=== PATIENT | male | born 1990 ===

== ENCOUNTER 2018-01-11 12:29 | Observation (INO) | payer MEDICAID ==
[2018-01-11] MEDS ORDERED: Sodium Chloride 0.9% 1,000 ML IV STA ×2 (13:14→15:45)
[2018-01-11 13:45] LABS: BASO # 0.1 K/uL (0.0-0.2); BASO % 0.7 % (0.0-2.0); EOS % 0.1 % (0.0-4.0); HEMOGLOBIN 15.5 g/dL (12.0-18.0); LYMPH # 1.4 K/uL (1.0-4.3); LYMPH % 15.5 % (20.0-40.0); MEAN CELL VOLUME 82.4 fl (80.0-94.0); MEAN CORPUSCULAR HEMOGLOBIN 28.6 pg (27.0-31.0); MEAN CORPUSCULAR HGB CONC 34.7 g/dL (33.0-37.0); MEAN PLATELET VOLUME 8.2 fl (7.2-11.7); MONO # 0.5 K/uL (0.0-0.8); MONO % 5.7 % (0.0-10.0); NEUT # 7.2 K/uL (1.8-7.0); NRBC % 0.1 % (0.0-0.0); RBC 5.41 Mil/uL (4.40-5.90); RED CELL DISTRIBUTION WIDTH 14.8 % (11.5-14.5); WHITE BLOOD COUNT 9.2 K/uL (4.8-10.8)
[2018-01-11 13:59] LABS: ABG ALLEN TEST YES; ARTERIAL BLOOD GAS HCO3 20.8 mmol/L (21-28); ARTERIAL BLOOD GAS O2 SAT 100.1 % (95-98); ARTERIAL BLOOD GAS PCO2 33 mm/Hg (35-45); ARTERIAL BLOOD GAS PH 7.37 (7.35-7.45); ARTERIAL BLOOD GAS PO2 89 mm/Hg (80-100); ARTERIAL BLOOD GAS TCO2 20.1 mmol/L (22-28)
--- NOTE | 2018-01-11 14:01 | ED PDOC ---
HPI: Abdomen Time Seen by Provider: 01/11/18 13:05 Chief Complaint (Nursing): High Blood Sugar Chief Complaint (Provider): High Blood Sugar History Per: Patient History/Exam Limitations: no limitations Onset/Duration Of Symptoms: Days (x5 days ) Location Of Pain/Discomfort: Epigastric Associated Symptoms: Nausea (intermittent), Vomiting (intermittent ). denies: Diarrhea Additional Complaint(s): Jim Lackey is 27 year old male with a past medical history of diabetes, who presents to the emergency department complaining of having epigastric pain, associated with intermittent nausea and vomiting, onset past "few days", provider believes x5 days. Patient reports that vomit is non bilious and non bloody. He further reports of frequent urination and being thirsty. Patient states that he ran out of his medication, Metformin and Insulin, for x1 week and could not refill his prescription at the pharmacy. He also reports that his blood sugar has been high for a "few" days. Patient is homeless but does have insurance. Patient denies diarrhea, chest pain or fever. PMD: [place], Past Medical History Reviewed: Historical Data, Nursing Documentation, Vital Signs Vital Signs: Last Vital Signs Temp 98.7 F 01/11/18 12:49 Pulse 106 H 01/11/18 12:49 Resp 18 01/11/18 12:49 BP 125/87 01/11/18 12:49 Pulse Ox 99 01/11/18 12:49 - Medical History PMH: Diabetes - Surgical History Surgical History: Tonsillectomy - Family History Family History: States: Diabetes - Social History Current smoker - smoking cessation education provided: No Ex-Smoker (has not smoked in the last 12 months): No Alcohol: None Drugs: Denies - Home Medications Home Medications: Ambulatory Orders Medication Instructions Recorded Insulin Glargine, Recombina 34 unit SC HS 01/11/18 [Lantus] Insulin Lispro [humALOG] 14 unit SC AC 01/11/18 Metoprolol Succinate XL [Toprol XL] 50 mg PO DAILY 01/11/18 Paliperidone Palmitate [Invega 234 mg IM Q28D 01/11/18 Sustenna] RX: Losartan [Cozaar] 50 mg PO DAILY 01/11/18 RX: MetFORMIN [glucoPHAGE] 1,000 mg PO BID 01/11/18 RX: amLODIPine [Norvasc] 5 mg PO DAILY 01/11/18 Rosuvastatin Calcium [Crestor] 10 mg PO HS 01/11/18 SITagliptin [Januvia] 50 mg PO DAILY 01/11/18 Sertraline [Zoloft] 200 mg PO DAILY 01/11/18 buPROPion XL [Wellbutrin XL] 300 mg PO DAILY 01/11/18 - Allergies Allergies/Adverse Reactions: Allergies Allergy/AdvReac Type Severity Reaction Status Date / Time Penicillins Allergy RASH Verified 01/11/18 12:49 Review of Systems ROS Statement: Except As Marked, All Systems Reviewed And Found Negative Constitutional: Positive for: Other (dehydration; tiredness). Negative for: Fever Cardiovascular: Negative for: Chest Pain Gastrointestinal: Positive for: Nausea, Vomiting, Abdominal Pain (epigastric). Negative for: Diarrhea Genitourinary Male: Positive for: Frequency Physical Exam - Reviewed Nursing Documentation Reviewed: Yes Vital Signs Reviewed: Yes - Physical Exam Appears: Positive for: Non-toxic, No Acute Distress Head Exam: Positive for: ATRAUMATIC, NORMOCEPHALIC Skin: Positive for: Normal Color, Warm, Dry Eye Exam: Positive for: Normal appearance, EOMI, PERRL ENT: Positive for: Normal ENT Inspection, Other (dry mucous membranes) Cardiovascular/Chest: Positive for: Regular Rate, Rhythm, Tachycardia. Negative for: Murmur Respiratory: Positive for: Normal Breath Sounds. Negative for: Respiratory Distress Gastrointestinal/Abdominal: Positive for: Normal Exam, Soft. Negative for: Tenderness Back: Positive for: Normal Inspection. Negative for: L CVA Tenderness, R CVA Tenderness, Vertebral Tenderness Extremity: Positive for: Normal ROM. Negative for: Pedal Edema, Deformity Neurologic/Psych: Positive for: Alert, Oriented (x3). Negative for: Motor/Sensory Deficits - Laboratory Results Result Diagrams: 01/11/18 13:32 01/11/18 20:04 - ECG O2 Sat by Pulse Oximetry: 99 (RA) Pulse Ox Interpretation: Normal Medical Decision Making Medical Decision Making: Initial Time: 13:14 Initial Impression: hyperglycemia and abdominal pain Differential diagnosis includes but not limited to uncontrolled diabetes due to noncompliance with medications, gastritis, pancreatitis, and less likely gallbla dder disease. Rule out DKA. Initial Plan: --Arterial blood gas --CMP --Lipase --ED urine dipstick --Sodium chloride 1,000 ml --Zofran 4 mg IVP --Saline Lock 1600 Labs reveal severe hyperglycemia, hypokalemia, and compensated high anion gap and low bicarb, and ketones in urine. Insulin IV IVF Admit Scribe Attestation: Documented by Juan F Miller, acting as a scribe for Jyotsna Rao MD. Provider Scribe Attestation: All medical record entries made by the Scribe were at my direction and personally dictated by me. I have reviewed the chart and agree that the record accurately reflects my personal performance of the history, physical exam, medical decision making, and the department course for this patient. I have also personally directed, reviewed, and agree with the discharge instructions and disposition. Disposition - Clinical Impression Clinical Impression: Hyperglycemia, Diabetic complication - Patient ED Disposition Is Patient to be Admitted: Yes Discussed With DrCharu: Karlie Hernandez Doctor Will See Patient In The: ED Counseled Patient/Family Regarding: Studies Performed, Diagnosis - Disposition Disposition Time: 16:00 Condition: FAIR - Pt Status Changed To: Hospital Disposition Of: Observation - POA Present On Arrival: Poor Glycemic Control
[2018-01-11 14:37] LABS: ALB/GLOB RATIO 1.2 (1.0-2.1); ALBUMIN 3.9 g/dL (3.5-5.0); ALT/SGPT 17 U/L (21-72); AST/SGOT 19 U/L (17-59); BLOOD UREA NITROGEN 2 mg/dl (9-20); CALCIUM 8.8 mg/dL (8.4-10.2); GFR NON-AFRICAN AMERICAN > 60; LIPASE 63 U/L (23-300)
[2018-01-11] MEDS ORDERED: Insulin Regular 100 units/ml IV STA (15:44)
[2018-01-11] MEDS ORDERED: Potassium Chloride 20 mEq ER Tab PO ONE ×2 (15:45→16:03)
[2018-01-11] MEDS ORDERED: Potassium CL 10 MEQ/50 ML 100 ML ONE (16:03)
[2018-01-11] MEDS: Potassium CL 10 MEQ/50 ML 50 ML IVPB SCH ×2 (16:07→17:47)
[2018-01-11] MEDS ORDERED: Potassium Chloride 20 mEq/15 ml LIQ UD PO ONE (16:30)
[2018-01-11] MEDS ORDERED: Potassium Chloride 20 mEq 100 ML IVPB ONE (17:15)
[2018-01-11] MEDS ORDERED: Paliperidone Palmitate 234 MG/1.5 ML SYR IM SCH (18:30)
[2018-01-11] MEDS ORDERED: Glucagon Recombinant 1 mg Inj IM PRN (18:32)
[2018-01-11] MEDS ORDERED: Dextrose 50% SYRINGE Inj (50 ml) IV PRN (18:32)
--- NOTE | 2018-01-11 19:08 | CP.PCM.HP ---
<Gerardo Long - Last Filed: 01/11/18 19:37> History of Present Illness - History of Present Illness History of Present Illness: 27 year old undomiciled male with developmental delay, insulin dependent diabetes and HTN presented with complaints of abdominal pain, nausea, vomiting for past few days. Also with complaints of polyuria, polydispia, and polyphagia. He endorses he has been without his insulin for past 1-2 weeks. He is currently living at [facility] and his pharmacy is up on and he can't grain picker his medications. He has been eating [facility]. He denies any recent illness, fevers, chills, headaches, weight loss, chest pain, dyspnea, cough, no diarrhea. Present on Admission - Present on Admission Any Indicators Present on Admission: Yes History of Uncontrolled Diabetes: Yes Review of Systems - Constitutional Constitutional: absent: Chills, Fever - EENT Eyes: absent: Blurred Vision, Change in Vision - Cardiovascular Cardiovascular: absent: Chest Pain, Dyspnea - Respiratory Respiratory: absent: Cough, Wheezing - Gastrointestinal Gastrointestinal: Abdominal Pain, Nausea, Vomiting. absent: Change in Bowel Habits, Constipation - Genitourinary Additional comments: polyuria - Neurological Neurological: absent: Dizziness, Numbness, Tingling Past Patient History - Past Social History Smoking Status: Never Smoked Alcohol: None Drugs: Denies - ENDOCRINE/METABOLIC Hx Diabetes Mellitus Type 2: Yes - PSYCHIATRIC Hx Substance Use: No - SURGICAL HISTORY Hx Tonsillectomy: Yes Meds Allergies/Adverse Reactions: Allergies Allergy/AdvReac Type Severity Reaction Status Date / Time Penicillins Allergy RASH Verified 01/11/18 12:49 Physical Exam - Constitutional Appears: Non-toxic, No Acute Distress - Head Exam Head Exam: ATRAUMATIC, NORMAL INSPECTION, NORMOCEPHALIC - Eye Exam Eye Exam: EOMI, Normal appearance, PERRL - ENT Exam ENT Exam: Mucous Membranes Dry - Neck Exam Neck exam: Positive for: Normal Inspection - Respiratory Exam Respiratory Exam: Clear to Auscultation Bilateral, NORMAL BREATHING PATTERN. absent: Wheezes, Respiratory Distress - Cardiovascular Exam Cardiovascular Exam: REGULAR RHYTHM, +S1, +S2. absent: Tachycardia, Diastolic murmur, Systolic Murmur - GI/Abdominal Exam GI & Abdominal Exam: Normal Bowel Sounds, Soft. absent: Distended, Guarding, Rebound, Tenderness - Extremities Exam Extremities exam: Positive for: normal inspection. Negative for: pedal edema, tenderness - Neurological Exam Neurological exam: Alert - Psychiatric Exam Psychiatric exam: Flat Affect - Skin Skin Exam: Dry, Intact, Normal Color, Warm Results - Vital Signs Recent Vital Signs: Last Vital Signs Temp 98.7 F 01/11/18 12:49 Pulse 106 H 01/11/18 12:49 Resp 18 01/11/18 12:49 BP 125/87 01/11/18 12:49 Pulse Ox 99 01/11/18 14:21 - Labs Result Diagrams: 01/11/18 13:32 01/11/18 14:12 Labs: Laboratory Results - last 24 hr 01/11/18 01/11/18 01/11/18 13:32 13:40 14:12 WBC 9.2 RBC 5.41 Hgb 15.5 Hct 44.6 MCV 82.4 MCH 28.6 MCHC 34.7 RDW 14.8 H Plt Count 274 MPV 8.2 Neut % (Auto) 78.0 H Lymph % (Auto) 15.5 L [place] % (Auto) 5.7 Eos % (Auto) 0.1 Baso % (Auto) 0.7 Neut # (Auto) 7.2 H Lymph # (Auto) 1.4 [place] # (Auto) 0.5 Eos # (Auto) 0.0 Baso # (Auto) 0.1 pCO2 33 L pO2 89 HCO3 20.8 L ABG pH 7.37 ABG Total CO2 20.1 L ABG O2 Saturation 100.1 H ABG O2 Content 20.0 ABG Base Excess -5.2 L ABG Hemoglobin 15.0 ABG Carboxyhemoglobin 3.5 H POC ABG HHb (Measured) -0.1 L ABG Methemoglobin 2.2 ABG O2 Capacity 20.0 Gato Test Yes A-a O2 Difference 19.0 Hgb O2 Saturation 94.4 L FiO2 21.0 Crit Value Called To Crystal lucas Crit Value Called By 15 Crit Value Read Back Y Blood Gas Notified Time 1357 Sodium 136 Potassium 3.0 L Chloride 97 L Carbon Dioxide 16 L Anion Gap 26 H BUN 2 L Creatinine 0.7 L Est GFR ( Amer) > 60 Est GFR (Non-Af Amer) > 60 POC Glucose (mg/dL) Random Glucose 517 H* Calcium 8.8 Phosphorus Magnesium Total Bilirubin 0.9 AST 19 ALT 17 L Alkaline Phosphatase 122 Total Protein 7.2 Albumin 3.9 Globulin 3.4 Albumin/Globulin Ratio 1.2 Lipase 63 01/11/18 01/11/18 01/11/18 15:33 17:46 18:51 WBC RBC Hgb Hct MCV MCH MCHC RDW Plt Count MPV Neut % (Auto) Lymph % (Auto) [place] % (Auto) Eos % (Auto) Baso % (Auto) Neut # (Auto) Lymph # (Auto) [place] # (Auto) Eos # (Auto) Baso # (Auto) pCO2 pO2 HCO3 ABG pH ABG Total CO2 ABG O2 Saturation ABG O2 Content ABG Base Excess ABG Hemoglobin ABG Carboxyhemoglobin POC ABG HHb (Measured) ABG Methemoglobin ABG O2 Capacity Gato Test A-a O2 Difference Hgb O2 Saturation FiO2 Crit Value Called To Crit Value Called By Crit Value Read Back Blood Gas Notified Time Sodium Potassium Chloride Carbon Dioxide Anion Gap BUN Creatinine Est GFR ( Amer) Est GFR (Non-Af Amer) POC Glucose (mg/dL) 381 H 262 H Random Glucose Calcium Phosphorus 2.0 L Magnesium 1.9 Total Bilirubin AST ALT Alkaline Phosphatase Total Protein Albumin Globulin Albumin/Globulin Ratio Lipase Assessment & Plan - Assessment and Plan (Free Text) Assessment: 27 year old undomiciled male with developmental delay, insulin dependent diabetes and HTN presented with complaints of abdominal pain, nausea, vomiting for past few days, polyuria, polydipsia, polyphagia admitted with hyperglycemia and ketonuria secondary to noncompliance with medications. He is hemodynamically stable. #Insulin dependent diabetes with hyperglycemia and ketonuria, without acidosis #Hypokalemia #HTN #Obesity #DVT prophylaxis -BMP q4 -IVF -NPO for now -Potassium repleted -SCDs -Resume home medications -Insulin sliding scale -health social work professor consult-medication assistance Case d/w attending. <Karlie Hernandez - Last Filed: 01/12/18 12:59> Results - Vital Signs Recent Vital Signs: Last Vital Signs Temp 97.2 F L 01/12/18 08:56 Pulse 71 01/12/18 08:56 Resp 18 01/12/18 08:56 BP 118/68 01/12/18 08:56 Pulse Ox 95 01/12/18 08:56 - Labs Result Diagrams: 01/11/18 13:32 01/12/18 09:24 Labs: Laboratory Results - last 24 hr 01/11/18 01/11/18 01/11/18 12:53 13:32 13:40 WBC 9.2 RBC 5.41 Hgb 15.5 Hct 44.6 MCV 82.4 MCH 28.6 MCHC 34.7 RDW 14.8 H Plt Count 274 MPV 8.2 Neut % (Auto) 78.0 H Lymph % (Auto) 15.5 L [place] % (Auto) 5.7 Eos % (Auto) 0.1 Baso % (Auto) 0.7 Neut # (Auto) 7.2 H Lymph # (Auto) 1.4 [place] # (Auto) 0.5 Eos # (Auto) 0.0 Baso # (Auto) 0.1 pCO2 33 L pO2 89 HCO3 20.8 L ABG pH 7.37 ABG Total CO2 20.1 L ABG O2 Saturation 100.1 H ABG O2 Content 20.0 ABG Base Excess -5.2 L ABG Hemoglobin 15.0 ABG Carboxyhemoglobin 3.5 H POC ABG HHb (Measured) -0.1 L ABG Methemoglobin 2.2 ABG O2 Capacity 20.0 Gato Test Yes A-a O2 Difference 19.0 Hgb O2 Saturation 94.4 L FiO2 21.0 Crit Value Called To Crystal lucas Crit Value Called By 15 Crit Value Read Back Y Blood Gas Notified Time 1357 Sodium Potassium Chloride Carbon Dioxide Anion Gap BUN Creatinine Est GFR ( Amer) Est GFR (Non-Af Amer) POC Glucose (mg/dL) > 500 H* Random Glucose Serum Osmolality Calcium Phosphorus Magnesium Total Bilirubin AST ALT Alkaline Phosphatase Total Protein Albumin Globulin Albumin/Globulin Ratio Lipase Urine Color Urine Clarity Urine pH Ur Specific [place] Urine Protein Urine Glucose (UA) Urine Ketones Urine Blood Urine Nitrate Urine Bilirubin Urine Urobilinogen Ur Leukocyte Esterase Urine RBC (Auto) Urine Microscopic WBC Ur Squamous Epith Cells 01/11/18 01/11/18 01/11/18 14:12 15:33 17:46 WBC RBC Hgb Hct MCV MCH MCHC RDW Plt Count MPV Neut % (Auto) Lymph % (Auto) [place] % (Auto) Eos % (Auto) Baso % (Auto) Neut # (Auto) Lymph # (Auto) [place] # (Auto) Eos # (Auto) Baso # (Auto) pCO2 pO2 HCO3 ABG pH ABG Total CO2 ABG O2 Saturation ABG O2 Content ABG Base Excess ABG Hemoglobin ABG Carboxyhemoglobin POC ABG HHb (Measured) ABG Methemoglobin ABG O2 Capacity Gato Test A-a O2 Difference Hgb O2 Saturation FiO2 Crit Value Called To Crit Value Called By Crit Value Read Back Blood Gas Notified Time Sodium 136 Potassium 3.0 L Chloride 97 L Carbon Dioxide 16 L Anion Gap 26 H BUN 2 L Creatinine 0.7 L Est GFR ( Amer) > 60 Est GFR (Non-Af Amer) > 60 POC Glucose (mg/dL) 381 H 262 H Random Glucose 517 H* Serum Osmolality Calcium 8.8 Phosphorus Magnesium Total Bilirubin 0.9 AST 19 ALT 17 L Alkaline Phosphatase 122 Total Protein 7.2 Albumin 3.9 Globulin 3.4 Albumin/Globulin Ratio 1.2 Lipase 63 Urine Color Urine Clarity Urine pH Ur Specific [place] Urine Protein Urine Glucose (UA) Urine Ketones Urine Blood Urine Nitrate Urine Bilirubin Urine Urobilinogen Ur Leukocyte Esterase Urine RBC (Auto) Urine Microscopic WBC Ur Squamous Epith Cells 01/11/18 01/11/18 01/11/18 18:51 18:51 18:51 WBC RBC Hgb Hct MCV MCH MCHC RDW Plt Count MPV Neut % (Auto) Lymph % (Auto) [place] % (Auto) Eos % (Auto) Baso % (Auto) Neut # (Auto) Lymph # (Auto) [place] # (Auto) Eos # (Auto) Baso # (Auto) pCO2 pO2 HCO3 ABG pH ABG Total CO2 ABG O2 Saturation ABG O2 Content ABG Base Excess ABG Hemoglobin ABG Carboxyhemoglobin POC ABG HHb (Measured) ABG Methemoglobin ABG O2 Capacity Gato Test A-a O2 Difference Hgb O2 Saturation FiO2 Crit Value Called To Crit Value Called By Crit Value Read Back Blood Gas Notified Time Sodium Potassium Chloride Carbon Dioxide Anion Gap BUN Creatinine Est GFR ( Amer) Est GFR (Non-Af Amer) POC Glucose (mg/dL) Random Glucose Serum Osmolality 305 H Calcium Phosphorus 2.0 L Magnesium 1.9 Total Bilirubin AST ALT Alkaline Phosphatase Total Protein Albumin Globulin Albumin/Globulin Ratio Lipase Urine Color Straw Urine Clarity Clear Urine pH 6.0 Ur Specific [place] 1.028 Urine Protein Negative Urine Glucose (UA) >=500 Urine Ketones 80 Urine Blood Negative Urine Nitrate Negative Urine Bilirubin Negative Urine Urobilinogen 0.2-1.0 Ur Leukocyte Esterase Neg Urine RBC (Auto) 2 Urine Microscopic WBC < 1 Ur Squamous Epith Cells < 1 01/11/18 01/11/18 01/11/18 20:04 20:05 22:22 WBC RBC Hgb Hct MCV MCH MCHC RDW Plt Count MPV Neut % (Auto) Lymph % (Auto) [place] % (Auto) Eos % (Auto) Baso % (Auto) Neut # (Auto) Lymph # (Auto) [place] # (Auto) Eos # (Auto) Baso # (Auto) pCO2 pO2 HCO3 ABG pH ABG Total CO2 ABG O2 Saturation ABG O2 Content ABG Base Excess ABG Hemoglobin ABG Carboxyhemoglobin POC ABG HHb (Measured) ABG Methemoglobin ABG O2 Capacity Gato Test A-a O2 Difference Hgb O2 Saturation FiO2 Crit Value Called To Crit Value Called By Crit Value Read Back Blood Gas Notified Time Sodium 142 Potassium 4.0 Chloride 107 Carbon Dioxide 18 L Anion Gap 21 H BUN < 2 L Creatinine 0.6 L Est GFR ( Amer) > 60 Est GFR (Non-Af Amer) > 60 POC Glucose (mg/dL) 213 H 209 H Random Glucose 209 H Serum Osmolality Calcium 8.6 Phosphorus Magnesium Total Bilirubin AST ALT Alkaline Phosphatase Total Protein Albumin Globulin Albumin/Globulin Ratio Lipase Urine Color Urine Clarity Urine pH Ur Specific [place] Urine Protein Urine Glucose (UA) Urine Ketones Urine Blood Urine Nitrate Urine Bilirubin Urine Urobilinogen Ur Leukocyte Esterase Urine RBC (Auto) Urine Microscopic WBC Ur Squamous Epith Cells 01/12/18 01/12/18 01/12/18 01:56 05:31 09:24 WBC RBC Hgb Hct MCV MCH MCHC RDW Plt Count MPV Neut % (Auto) Lymph % (Auto) [place] % (Auto) Eos % (Auto) Baso % (Auto) Neut # (Auto) Lymph # (Auto) [place] # (Auto) Eos # (Auto) Baso # (Auto) pCO2 pO2 HCO3 ABG pH ABG Total CO2 ABG O2 Saturation ABG O2 Content ABG Base Excess ABG Hemoglobin ABG Carboxyhemoglobin POC ABG HHb (Measured) ABG Methemoglobin ABG O2 Capacity Gato Test A-a O2 Difference Hgb O2 Saturation FiO2 Crit Value Called To Crit Value Called By Crit Value Read Back Blood Gas Notified Time Sodium 141 Potassium 2.7 L Chloride 105 Carbon Dioxide 25 Anion Gap 14 BUN < 2 L Creatinine 0.6 L Est GFR ( Amer) > 60 Est GFR (Non-Af Amer) > 60 POC Glucose (mg/dL) 258 H 237 H Random Glucose 214 H Serum Osmolality Calcium 8.7 Phosphorus Magnesium Total Bilirubin AST ALT Alkaline Phosphatase Total Protein Albumin Globulin Albumin/Globulin Ratio Lipase Urine Color Urine Clarity Urine pH Ur Specific [place] Urine Protein Urine Glucose (UA) Urine Ketones Urine Blood Urine Nitrate Urine Bilirubin Urine Urobilinogen Ur Leukocyte Esterase Urine RBC (Auto) Urine Microscopic WBC Ur Squamous Epith Cells 01/12/18 01/12/18 09:32 10:57 WBC RBC Hgb Hct MCV MCH MCHC RDW Plt Count MPV Neut % (Auto) Lymph % (Auto) [place] % (Auto) Eos % (Auto) Baso % (Auto) Neut # (Auto) Lymph # (Auto) [place] # (Auto) Eos # (Auto) Baso # (Auto) pCO2 pO2 HCO3 ABG pH ABG Total CO2 ABG O2 Saturation ABG O2 Content ABG Base Excess ABG Hemoglobin ABG Carboxyhemoglobin POC ABG HHb (Measured) ABG Methemoglobin ABG O2 Capacity Gato Test A-a O2 Difference Hgb O2 Saturation FiO2 Crit Value Called To Crit Value Called By Crit Value Read Back Blood Gas Notified Time Sodium Potassium Chloride Carbon Dioxide Anion Gap BUN Creatinine Est GFR ( Amer) Est GFR (Non-Af Amer) POC Glucose (mg/dL) 213 H Random Glucose Serum Osmolality Calcium Phosphorus 2.7 Magnesium 1.9 Total Bilirubin AST ALT Alkaline Phosphatase Total Protein Albumin Globulin Albumin/Globulin Ratio Lipase Urine Color Urine Clarity Urine pH Ur Specific [place] Urine Protein Urine Glucose (UA) Urine Ketones Urine Blood Urine Nitrate Urine Bilirubin Urine Urobilinogen Ur Leukocyte Esterase Urine RBC (Auto) Urine Microscopic WBC Ur Squamous Epith Cells Attending/Attestation - Attestation I have personally seen and examined this patient.: Yes I have fully participated in the care of the patient.: Yes I have reviewed all pertinent clinical information: Yes Notes (Text): 01/12/18 12:56 Patient seen, examined, discussed with resident. Patient is well known to our service for noncompliance. Responding well to home dose insulin and PO antihyperglycemics. He states he has trouble going to [place] to obtain medications. Will send to pharmacy in hospital as it is easier to fill prescriptions here for patient. Discharge with follow up at clinic once glucose better controlled. Also discussed appropriate diabetic diet with patient again. 01/12/18 12:58
[2018-01-11 19:21] LABS: SQUAMOUS EPITHIAL < 1 /hpf (0-5); URINE BILIRUBIN NEGATIVE (NEGATIVE); URINE BLOOD NEGATIVE (NEGATIVE); URINE CLARITY CLEAR (Clear); URINE COLOR STRAW (YELLOW); URINE GLUCOSE (UA) >=500 mg/dL (Normal); URINE LEUKOCYTE ESTERASE NEG Leu/uL (Negative); URINE PROTEIN NEGATIVE (NEGATIVE); URINE UROBILINOGEN 0.2-1.0 mg/dL (0.2-1.0)
[2018-01-11 21:27] LABS: BLOOD UREA NITROGEN < 2 mg/dl (9-20); CALCIUM 8.6 mg/dL (8.4-10.2); GFR NON-AFRICAN AMERICAN > 60
[2018-01-11] MEDS: Insulin Detemir 100 Units/ml Inj SC SCH (23:01)
[2018-01-11] MEDS ORDERED: Insulin Detemir 100 Units/ml Inj SC ONE (23:02)
[2018-01-12] MEDS ORDERED: Influenza Vaccine (5 YR UP)/PF 60 MCG/0.5 ML SYR IM ONE (06:00)
[2018-01-12] MEDS: Insulin Regular 100 units/ml SC SCH ×4 (06:00→23:57)
[2018-01-12] MEDS ORDERED: Pneumococcal 23-Valent Vaccine IM ONE (06:00)
--- NOTE | 2018-01-12 08:26 | CP.PCM.PN ---
Objective - Vital Signs/Intake and Output Vital Signs (last 24 hours): Temp Pulse Resp BP Pulse Ox 98.1 F 87 17 124/62 99 01/11/18 23:34 01/11/18 23:43 01/11/18 23:43 01/11/18 23:34 01/12/18 07:35 - Medications Medications: Current Medications Amlodipine Besylate (Norvasc) 5 mg PO DAILY [facility] Atorvastatin Calcium (Lipitor) 20 mg PO HS [facility] Dextrose (Dextrose 50% Inj) 0 ml IV STAT PRN; Protocol PRN Reason: Hypoglycemia Protocol Dextrose (Glutose 15) 0 gm PO ONCE PRN; Protocol PRN Reason: Hypoglycemia Protocol Enoxaparin Sodium (Lovenox) 40 mg SC DAILY [facility]; Protocol Glucagon (Glucagen Diagnostic Kit) 0 mg IM STAT PRN; Protocol PRN Reason: Hypoglycemia Protocol Home Med (Bupropion Xl [Wellbutrin Xl]) 300 mg PO DAILY [facility] Potassium Chloride 20 meq/ (Sodium Chloride) 1,010 mls @ 150 mls/hr IV .[id number] [facility] Stop: 01/12/18 19:33 Last Admin: 01/12/18 04:25 Dose: 150 mls/hr Insulin Detemir (Levemir) 34 units SC HS [facility] Last Admin: 01/11/18 23:01 Dose: 34 unit Insulin Human Lispro (Humalog) 14 units SC AC [facility] Insulin Human Regular (Humulin R) 0 units SC ACCU-CHECK [facility]; Protocol Last Admin: 01/12/18 06:00 Dose: 2 u Losartan Potassium (Cozaar) 50 mg PO DAILY [facility] Metoprolol Succinate (Toprol Xl) 50 mg PO DAILY [facility] Ondansetron HCl (Zofran Inj) 4 mg IVP Q6 PRN PRN Reason: Nausea/Vomiting Paliperidone Palmitate (Invega Sustenna) 234 mg IM Q28D [facility] Last Admin: 01/11/18 20:23 Dose: Not Given Sertraline HCl (Zoloft) 200 mg PO DAILY [facility] Sitagliptin Phosphate (Januvia) 50 mg PO DAILY [facility] - Labs Labs: 01/11/18 13:32 01/11/18 20:04
[2018-01-12] MEDS: Enoxaparin 40 mg Syringe SC SCH (08:40)
[2018-01-12] MEDS: Metoprolol Succinate 50 mg XL Tab PO SCH (08:41)
[2018-01-12] MEDS: Insulin Lispro (humaLOG) 100 Units/ml Inj SC SCH ×3 (08:41→17:19)
--- NOTE | 2018-01-12 09:55 | CP.PCM.DIS ---
<Casper Messina - Last Filed: 01/12/18 09:51> Provider - Provider Date of Admission: 01/11/18 16:53 Attending physician: Karlie Hernandez DO Time Spent in preparation of Discharge (in minutes): 30 Diagnosis - Discharge Diagnosis (1) Diabetic complication Status: Acute (2) Hyperglycemia Status: Acute Hospital Course - Lab Results Lab Results: Most Recent Lab Values WBC 9.2 K/uL (4.8-10.8) 01/11/18 13:32 RBC 5.41 Mil/uL (4.40-5.90) 01/11/18 13:32 Hgb 15.5 g/dL (12.0-18.0) 01/11/18 13:32 Hct 44.6 % (35.0-51.0) 01/11/18 13:32 MCV 82.4 fl (80.0-94.0) 01/11/18 13:32 MCH 28.6 pg (27.0-31.0) 01/11/18 13:32 MCHC 34.7 g/dL (33.0-37.0) 01/11/18 13:32 RDW 14.8 % (11.5-14.5) H 01/11/18 13:32 Plt Count 274 K/uL (130-400) 01/11/18 13:32 MPV 8.2 fl (7.2-11.7) 01/11/18 13:32 Neut % (Auto) 78.0 % (50.0-75.0) H 01/11/18 13:32 Lymph % (Auto) 15.5 % (20.0-40.0) L 01/11/18 13:32 [place] % (Auto) 5.7 % (0.0-10.0) 01/11/18 13:32 Eos % (Auto) 0.1 % (0.0-4.0) 01/11/18 13:32 Baso % (Auto) 0.7 % (0.0-2.0) 01/11/18 13:32 Neut # (Auto) 7.2 K/uL (1.8-7.0) H 01/11/18 13:32 Lymph # (Auto) 1.4 K/uL (1.0-4.3) 01/11/18 13:32 [place] # (Auto) 0.5 K/uL (0.0-0.8) 01/11/18 13:32 Eos # (Auto) 0.0 K/uL (0.0-0.7) 01/11/18 13:32 Baso # (Auto) 0.1 K/uL (0.0-0.2) 01/11/18 13:32 pCO2 33 mm/Hg (35-45) L 01/11/18 13:40 pO2 89 mm/Hg (80-100) 01/11/18 13:40 HCO3 20.8 mmol/L (21-28) L 01/11/18 13:40 ABG pH 7.37 (7.35-7.45) 01/11/18 13:40 ABG Total CO2 20.1 mmol/L (22-28) L 01/11/18 13:40 ABG O2 Saturation 100.1 % (95-98) H 01/11/18 13:40 ABG O2 Content 20.0 ML/dL (15-23) 01/11/18 13:40 ABG Base Excess -5.2 mmol/L (-2.0-3.0) L 01/11/18 13:40 ABG Hemoglobin 15.0 g/dL (11.7-17.4) 01/11/18 13:40 ABG Carboxyhemoglobin 3.5 % (0.5-1.5) H 01/11/18 13:40 POC ABG HHb (Measured) -0.1 % (0.0-5.0) L 01/11/18 13:40 ABG Methemoglobin 2.2 % (0.0-3.0) 01/11/18 13:40 ABG O2 Capacity 20.0 mL/dL (16-24) 01/11/18 13:40 Gato Test Yes 01/11/18 13:40 A-a O2 Difference 19.0 mm/Hg 01/11/18 13:40 Hgb O2 Saturation 94.4 % (95.0-98.0) L 01/11/18 13:40 FiO2 21.0 % 01/11/18 13:40 Crit Value Called To Crystal lucas 01/11/18 13:40 Crit Value Called By Jeremi 01/11/18 13:40 Crit Value Read Back Y 01/11/18 13:40 Blood Gas Notified Time 1357 01/11/18 13:40 Sodium 142 mmol/l (132-148) 01/11/18 20:04 Potassium 4.0 MMOL/L (3.6-5.0) 01/11/18 20:04 Chloride 107 mmol/L (98-107) 01/11/18 20:04 Carbon Dioxide 18 mmol/L (22-30) L 01/11/18 20:04 Anion Gap 21 (10-20) H 01/11/18 20:04 BUN < 2 mg/dl (9-20) L 01/11/18 20:04 Creatinine 0.6 mg/dl (0.8-1.5) L 01/11/18 20:04 Est GFR ( Amer) > 60 01/11/18 20:04 Est GFR (Non-Af Amer) > 60 01/11/18 20:04 POC Glucose (mg/dL) 213 mg/dL (65-110) H 01/12/18 09:32 Random Glucose 209 mg/dL (75-110) H 01/11/18 20:04 Serum Osmolality 305 mosm/kg (272-300) H 01/11/18 18:51 Calcium 8.6 mg/dL (8.4-10.2) 01/11/18 20:04 Phosphorus 2.0 mg/dl (2.5-4.5) L 01/11/18 18:51 Magnesium 1.9 MG/DL (1.6-2.3) 01/11/18 18:51 Total Bilirubin 0.9 mg/dl (0.2-1.3) 01/11/18 14:12 AST 19 U/L (17-59) 01/11/18 14:12 ALT 17 U/L (21-72) L 01/11/18 14:12 Alkaline Phosphatase 122 U/L (38-126) 01/11/18 14:12 Total Protein 7.2 G/DL (6.3-8.2) 01/11/18 14:12 Albumin 3.9 g/dL (3.5-5.0) 01/11/18 14:12 Globulin 3.4 gm/dL (2.2-3.9) 01/11/18 14:12 Albumin/Globulin Ratio 1.2 (1.0-2.1) 01/11/18 14:12 Lipase 63 U/L (23-300) 01/11/18 14:12 Urine Color Straw (YELLOW) 01/11/18 18:51 Urine Clarity Clear (Clear) 01/11/18 18:51 Urine pH 6.0 (5.0-8.0) 01/11/18 18:51 Ur Specific [place] 1.028 (1.003-1.030) 01/11/18 18:51 Urine Protein Negative mg/dL (NEGATIVE) 01/11/18 18:51 Urine Glucose (UA) >=500 mg/dL (Normal) 01/11/18 18:51 Urine Ketones 80 mg/dL (NEGATIVE) 01/11/18 18:51 Urine Blood Negative (NEGATIVE) 01/11/18 18:51 Urine Nitrate Negative (NEGATIVE) 01/11/18 18:51 Urine Bilirubin Negative (NEGATIVE) 01/11/18 18:51 Urine Urobilinogen 0.2-1.0 mg/dL (0.2-1.0) 01/11/18 18:51 Ur Leukocyte Esterase Neg Jaye/uL (Negative) 01/11/18 18:51 Urine RBC (Auto) 2 /hpf (0-3) 01/11/18 18:51 Urine Microscopic WBC < 1 /hpf (0-5) 01/11/18 18:51 Ur Squamous Epith Cells < 1 /hpf (0-5) 01/11/18 18:51 - Hospital Course Hospital Course: 27 yo male with pmhx of developmental delay, IDDM, and HTN presented to the ED yesterday with complaints of nausea and vomiting for the past two days. Patient is in a senior living in [place] and was not able to get his medications from the pharmacy for the past two weeks. His sugars upon admission were >500. He was mad e NPO and placed on IVF. He was placed on insulin sliding scale and potassium was replaced as he was hypokalemic upon admission. His glucose became controlled and he was placed on a consistent carbohydrate diet. Patients sugars are under control and he is stable for discharge. Patient is educated on diet and diabetic care. Will use the [facility] pharmacy in the hospital as new pharmacy to pickle maker medications. - Date & Time of H&P Date of H&P: 01/12/18 Time of H&P: 09:55 Discharge Exam - Head Exam Head Exam: ATRAUMATIC, NORMOCEPHALIC - Eye Exam Eye Exam: EOMI, Normal appearance, PERRL - ENT Exam ENT Exam: Mucous Membranes Moist - Neck Exam Neck exam: Normal Inspection - Respiratory Exam Respiratory Exam: Clear to PA & Lateral, NORMAL BREATHING PATTERN - Cardiovascular Exam Cardiovascular Exam: REGULAR RHYTHM, +S1, +S2 - GI/Abdominal Exam GI & Abdominal Exam: Normal Bowel Sounds, Soft - Extremities Exam Extremities exam: normal capillary refill, normal inspection, pedal pulses present - Neurological Exam Neurological exam: Alert, Oriented x3 - Psychiatric Exam Psychiatric exam: Normal Affect, Normal Mood - Skin Skin Exam: Intact, Normal Color, Warm Discharge Plan - Discharge Medications Prescriptions: RX: amLODIPine [Norvasc] 5 mg PO DAILY 30 Days #30 tab RX: buPROPion XL [Wellbutrin XL] 300 mg PO DAILY 30 Days #30 t24 RX: Insulin Glargine, Recombina [Lantus] 34 unit SC HS 30 Days #1 unit RX: Losartan [Cozaar] 50 mg PO DAILY 30 Days #30 tab RX: MetFORMIN [glucoPHAGE] 1,000 mg PO BID 30 Days #60 tab RX: Metoprolol Succinate XL [Toprol XL] 50 mg PO DAILY 30 Days #30 tab RX: Rosuvastatin Calcium [Crestor] 10 mg PO HS 30 Days #30 tab RX: Sertraline [Zoloft] 200 mg PO DAILY 30 Days #30 tab RX: SITagliptin [Januvia] 50 mg PO DAILY 30 Days #30 tab - Follow Up Plan Condition: FAIR Disposition: HOME/ ROUTINE Instructions: Insulin Glargine, Diabetes and Diet, Diabetic Ketoacidosis (DC) Additional Instructions: Follow up in [facility] on 01/18/18 @ 10:[address] Wild Referrals: [facility] [Outside] Tab Givens [Family Provider] - Clinical Quality Measures - Date & Time of Discharge Summary Date of Discharge Summary: 01/12/18 Time of Discharge Summary: 09:59 <Karlie Hernandez - Last Filed: 01/13/18 17:28> Provider - Provider Date of Admission: 01/11/18 16:53 Attending physician: Karlie Hernandez DO Hospital Course - Lab Results Lab Results: Most Recent Lab Values WBC 4.5 K/uL (4.8-10.8) L D 01/13/18 06:15 RBC 4.79 Mil/uL (4.40-5.90) 01/13/18 06:15 Hgb 13.7 g/dL (12.0-18.0) 01/13/18 06:15 Hct 39.4 % (35.0-51.0) 01/13/18 06:15 MCV 82.1 fl (80.0-94.0) 01/13/18 06:15 MCH 28.6 pg (27.0-31.0) 01/13/18 06:15 MCHC 34.8 g/dL (33.0-37.0) 01/13/18 06:15 RDW 14.7 % (11.5-14.5) H 01/13/18 06:15 Plt Count 183 K/uL (130-400) 01/13/18 06:15 MPV 7.6 fl (7.2-11.7) 01/13/18 06:15 Neut % (Auto) 52.2 % (50.0-75.0) 01/13/18 06:15 Lymph % (Auto) 35.0 % (20.0-40.0) 01/13/18 06:15 [place] % (Auto) 9.9 % (0.0-10.0) 01/13/18 06:15 Eos % (Auto) 2.2 % (0.0-4.0) 01/13/18 06:15 Baso % (Auto) 0.7 % (0.0-2.0) 01/13/18 06:15 Neut # (Auto) 2.4 K/uL (1.8-7.0) 01/13/18 06:15 Lymph # (Auto) 1.6 K/uL (1.0-4.3) 01/13/18 06:15 [place] # (Auto) 0.5 K/uL (0.0-0.8) 01/13/18 06:15 Eos # (Auto) 0.1 K/uL (0.0-0.7) 01/13/18 06:15 Baso # (Auto) 0.0 K/uL (0.0-0.2) 01/13/18 06:15 pCO2 33 mm/Hg (35-45) L 01/11/18 13:40 pO2 89 mm/Hg (80-100) 01/11/18 13:40 HCO3 20.8 mmol/L (21-28) L 01/11/18 13:40 ABG pH 7.37 (7.35-7.45) 01/11/18 13:40 ABG Total CO2 20.1 mmol/L (22-28) L 01/11/18 13:40 ABG O2 Saturation 100.1 % (95-98) H 01/11/18 13:40 ABG O2 Content 20.0 ML/dL (15-23) 01/11/18 13:40 ABG Base Excess -5.2 mmol/L (-2.0-3.0) L 01/11/18 13:40 ABG Hemoglobin 15.0 g/dL (11.7-17.4) 01/11/18 13:40 ABG Carboxyhemoglobin 3.5 % (0.5-1.5) H 01/11/18 13:40 POC ABG HHb (Measured) -0.1 % (0.0-5.0) L 01/11/18 13:40 ABG Methemoglobin 2.2 % (0.0-3.0) 01/11/18 13:40 ABG O2 Capacity 20.0 mL/dL (16-24) 01/11/18 13:40 [place]ato Test Yes 01/11/18 13:40 A-a O2 Difference 19.0 mm/Hg 01/11/18 13:40 Hgb O2 Saturation 94.4 % (95.0-98.0) L 01/11/18 13:40 FiO2 21.0 % 01/11/18 13:40 Crit Value Called To Crystal lucas 01/11/18 13:40 Crit Value Called By 15 01/11/18 13:40 Crit Value Read Back Y 01/11/18 13:40 Blood Gas Notified Time 1357 01/11/18 13:40 Sodium 136 mmol/l (132-148) 01/13/18 12:32 Potassium 3.4 MMOL/L (3.6-5.0) L 01/13/18 12:32 Chloride 104 mmol/L (98-107) 01/13/18 12:32 Carbon Dioxide 28 mmol/L (22-30) 01/13/18 12:32 Anion Gap 7 (10-20) L 01/13/18 12:32 BUN < 2 mg/dl (9-20) L 01/13/18 12:32 Creatinine 0.5 mg/dl (0.8-1.5) L 01/13/18 12:32 Est GFR ( Amer) > 60 01/13/18 12:32 Est GFR (Non-Af Amer) > 60 01/13/18 12:32 POC Glucose (mg/dL) 220 mg/dL (65-110) H 01/13/18 10:35 Random Glucose 158 mg/dL (75-110) H 01/13/18 12:32 Serum Osmolality 305 mosm/kg (272-300) H 01/11/18 18:51 Calcium 8.7 mg/dL (8.4-10.2) 01/13/18 12:32 Phosphorus 3.3 mg/dl (2.5-4.5) 01/13/18 06:15 Magnesium 2.0 MG/DL (1.6-2.3) 01/13/18 06:15 Total Bilirubin 0.5 mg/dl (0.2-1.3) 01/13/18 12:32 AST 15 U/L (17-59) L D 01/13/18 12:32 ALT 21 U/L (21-72) 01/13/18 12:32 Alkaline Phosphatase 97 U/L (38-126) 01/13/18 12:32 Total Protein 6.1 G/DL (6.3-8.2) L 01/13/18 12:32 Albumin 3.0 g/dL (3.5-5.0) L 01/13/18 12:32 Globulin 3.1 gm/dL (2.2-3.9) 01/13/18 12:32 Albumin/Globulin Ratio 1.0 (1.0-2.1) 01/13/18 12:32 Lipase 63 U/L (23-300) 01/11/18 14:12 Urine Color Straw (YELLOW) 01/11/18 18:51 Urine Clarity Clear (Clear) 01/11/18 18:51 Urine pH 6.0 (5.0-8.0) 01/11/18 18:51 Ur Specific [place] 1.028 (1.003-1.030) 01/11/18 18:51 Urine Protein Negative mg/dL (NEGATIVE) 01/11/18 18:51 Urine Glucose (UA) >=500 mg/dL (Normal) 01/11/18 18:51 Urine Ketones 80 mg/dL (NEGATIVE) 01/11/18 18:51 Urine Blood Negative (NEGATIVE) 01/11/18 18:51 Urine Nitrate Negative (NEGATIVE) 01/11/18 18:51 Urine Bilirubin Negative (NEGATIVE) 01/11/18 18:51 Urine Urobilinogen 0.2-1.0 mg/dL (0.2-1.0) 01/11/18 18:51 Ur Leukocyte Esterase Neg Jaye/uL (Negative) 01/11/18 18:51 Urine RBC (Auto) 2 /hpf (0-3) 01/11/18 18:51 Urine Microscopic WBC < 1 /hpf (0-5) 01/11/18 18:51 Ur Squamous Epith Cells < 1 /hpf (0-5) 01/11/18 18:51 Attending/Attestation - Attestation I have personally seen and examined this patient.: Yes I have fully participated in the care of the patient.: Yes I have reviewed all pertinent clinical information, including history, physical exam and plan: Yes Notes (Text): 01/13/18 17:27Seen examined and discussed with resident. Agree with findings and plan as above. Doing well, BG needs further control, if not controlled, delay discharge until tomrrow.
[2018-01-12 10:02] LABS: BLOOD UREA NITROGEN < 2 mg/dl (9-20); CALCIUM 8.7 mg/dL (8.4-10.2); GFR NON-AFRICAN AMERICAN > 60
[2018-01-12] MEDS ORDERED: Magnesium Sulfate 2 gm/50 ml 2 GM/50 ML BAG IVPB ONE (11:30)
[2018-01-12] MEDS: Potassium Chloride 20 mEq 100 ML IVPB SCH ×3 (11:41→16:08)
[2018-01-12] MEDS: Potassium & Sodium Phosphate PO SCH ×3 (11:41→16:23)
[2018-01-12 15:59] LABS: CALCIUM 8.4 mg/dL (8.4-10.2); GFR NON-AFRICAN AMERICAN > 60
[2018-01-12 16:15] LABS: BLOOD UREA NITROGEN < 2 mg/dl (9-20)
[2018-01-12] MEDS ORDERED: Potassium CL 10 MEQ/50 ML 50 ML IVPB SCH ×2 (16:30→16:40)
[2018-01-12] MEDS ORDERED: Potassium Chloride 20 mEq ER Tab PO ONE (17:30)
--- NOTE | 2018-01-12 18:48 | CARD ---
APPROVED REPORT Date of service: 01/12/2018 EKG Measurement Heart [id number] ID [id number] <Conclusion> Normal sinus rhythm Normal ECG
[2018-01-12 21:25] LABS: CALCIUM 8.3 mg/dL (8.4-10.2); GFR NON-AFRICAN AMERICAN > 60
[2018-01-12 21:30] LABS: BLOOD UREA NITROGEN < 2 mg/dl (9-20)
[2018-01-13] MEDS: Insulin Detemir 100 Units/ml Inj SC SCH (00:03)
[2018-01-13] MEDS: POLYETHYLENE GLYCOL 3350 17 GM/Dose PACKET PO SCH ×2 (00:10→00:13)
[2018-01-13] MEDS: Potassium & Sodium Phosphate PO SCH ×2 (00:14→09:06)
[2018-01-13 00:30] VITALS: O2SAT 95
[2018-01-13] MEDS ORDERED: Potassium Chloride 20 mEq ER Tab PO ONE ×2 (02:32→06:57)
[2018-01-13 06:58] LABS: BASO % 0.7 % (0.0-2.0); EOS # 0.1 K/uL (0.0-0.7); EOS % 2.2 % (0.0-4.0); HEMOGLOBIN 13.7 g/dL (12.0-18.0); LYMPH # 1.6 K/uL (1.0-4.3); MEAN CELL VOLUME 82.1 fl (80.0-94.0); MEAN CORPUSCULAR HEMOGLOBIN 28.6 pg (27.0-31.0); MEAN CORPUSCULAR HGB CONC 34.8 g/dL (33.0-37.0); MEAN PLATELET VOLUME 7.6 fl (7.2-11.7); MONO # 0.5 K/uL (0.0-0.8); MONO % 9.9 % (0.0-10.0); NEUT # 2.4 K/uL (1.8-7.0); NEUT % 52.2 % (50.0-75.0); NRBC % 0.3 % (0.0-0.0); RBC 4.79 Mil/uL (4.40-5.90); RED CELL DISTRIBUTION WIDTH 14.7 % (11.5-14.5); WHITE BLOOD COUNT 4.5 K/uL (4.8-10.8)
[2018-01-13 07:07] LABS: BLOOD UREA NITROGEN < 2 mg/dl (9-20); CALCIUM 8.6 mg/dL (8.4-10.2); GFR NON-AFRICAN AMERICAN > 60
[2018-01-13 07:56] VITALS: BP 103/55; PULSE 72; RESP 19; TEMP 97.9
[2018-01-13] MEDS: Enoxaparin 40 mg Syringe SC SCH (09:06)
[2018-01-13] MEDS: Metoprolol Succinate 50 mg XL Tab PO SCH (09:06)
[2018-01-13] MEDS: Insulin Lispro (humaLOG) 100 Units/ml Inj SC SCH ×2 (09:09→12:13)
--- NOTE | 2018-01-13 10:46 | CP.PCM.PN ---
<Casper Messina - Last Filed: 01/13/18 14:46> Subjective - Date & Time of Evaluation Date of Evaluation: 01/13/18 Time of Evaluation: 10:41 - Subjective Subjective: See discharge summary 01/12/18 27 yo male seen and examined this morning bedside resting comfortably. Order for discharge placed yesterday but potassium levels were low and kept to replace and monitor. Patient pharmacy also changed to [facility] in hospital and to leave with prescriptions dispensed and on person. Objective - Vital Signs/Intake and Output Vital Signs (last 24 hours): Temp Pulse Resp BP Pulse Ox 97.9 F 72 19 103/55 L 95 01/13/18 07:56 01/13/18 09:06 01/13/18 07:56 01/13/18 09:06 01/13/18 07:56 - Medications Medications: Current Medications Amlodipine Besylate (Norvasc) 5 mg PO DAILY [facility] Last Admin: 01/13/18 09:06 Dose: Not Given Atorvastatin Calcium (Lipitor) 20 mg PO [facility] Last Admin: 01/13/18 00:10 Dose: 20 mg Bupropion HCl (Wellbutrin) 100 mg PO BID [facility] Last Admin: 01/13/18 09:05 Dose: 100 mg Dextrose (Dextrose 50% Inj) 0 ml IV STAT PRN; Protocol PRN Reason: Hypoglycemia Protocol Dextrose (Glutose 15) 0 gm PO ONCE PRN; Protocol PRN Reason: Hypoglycemia Protocol Enoxaparin Sodium (Lovenox) 40 mg SC DAILY [facility]; Protocol Last Admin: 01/13/18 09:06 Dose: 40 mg Glucagon (Glucagen Diagnostic Kit) 0 mg IM STAT PRN; Protocol PRN Reason: Hypoglycemia Protocol Insulin Detemir (Levemir) 34 units SC [facility] Last Admin: 01/13/18 00:03 Dose: 34 unit Insulin Human Lispro (Humalog) 10 units SC AC [facility] Last Admin: 01/13/18 09:09 Dose: 10 units Insulin Human Regular (Humulin R) 0 units SC ACCU-CHECK [facility], [facility]; Protocol Last Admin: 01/12/18 23:57 Dose: Not Given Losartan Potassium (Cozaar) 50 mg PO DAILY [facility] Last Admin: 01/12/18 08:40 Dose: 50 mg Metoprolol Succinate (Toprol Xl) 50 mg PO DAILY [facility] Last Admin: 01/13/18 09:06 Dose: Not Given Ondansetron HCl (Zofran Inj) 4 mg IVP Q6 PRN PRN Reason: Nausea/Vomiting Paliperidone Palmitate (Invega Sustenna) 234 mg IM Q28D [facility] Last Admin: 01/11/18 20:23 Dose: Not Given Polyethylene Glycol (Miralax) 17 gm PO HS [facility] Last Admin: 01/13/18 00:13 Dose: Not Given Potassium Phos/Sodium Phos (Neutra-Phos) 1 pkt PO QID [facility] Last Admin: 01/13/18 09:06 Dose: 1 pkt Sertraline HCl (Zoloft) 200 mg PO DAILY [facility] Last Admin: 01/13/18 09:04 Dose: 200 mg Sitagliptin Phosphate (Januvia) 50 mg PO DAILY [facility] Last Admin: 01/13/18 09:07 Dose: 50 mg - Labs Labs: 01/13/18 06:15 01/13/18 06:15 - Constitutional Appears: Well, Non-toxic, No Acute Distress - Head Exam Head Exam: ATRAUMATIC, NORMOCEPHALIC - Eye Exam Eye Exam: EOMI, Normal appearance - ENT Exam ENT Exam: Mucous Membranes Moist - Neck Exam Neck Exam: Normal Inspection - Respiratory Exam Respiratory Exam: Clear to Ausculation Bilateral, NORMAL BREATHING PATTERN - Cardiovascular Exam Cardiovascular Exam: REGULAR RHYTHM, +S1, +S2 - GI/Abdominal Exam GI & Abdominal Exam: Soft, Normal Bowel Sounds - Extremities Exam Extremities Exam: Full ROM, Normal Capillary Refill. absent: Calf Tenderness, Pedal Edema, Tenderness - Neurological Exam Neurological Exam: Alert, Awake, Oriented x3 - Psychiatric Exam Psychiatric exam: Normal Affect, Normal Mood - Skin Skin Exam: Dry, Warm Assessment and Plan (1) Diabetic complication Assessment & Plan: - [facility] to discharge - glycemic control with rx Status: Acute (2) Hyperglycemia Status: Acute - Assessment and Plan (Free Text) Assessment: #hypokalemia - replacement with kcl - BMP to monitor, discharge once controlled <Karlie Hernandez - Last Filed: 01/13/18 17:38> Objective - Vital Signs/Intake and Output Vital Signs (last 24 hours): Temp Pulse Resp BP Pulse Ox 97.9 F 72 19 103/55 L 95 01/13/18 07:56 01/13/18 09:06 01/13/18 07:56 01/13/18 12:12 01/13/18 07:56 - Labs Labs: 01/13/18 06:15 01/13/18 12:32 Attending/Attestation - Attestation I have personally seen and examined this patient.: Yes I have fully participated in the care of the patient.: Yes I have reviewed all pertinent clinical information, including history, physical exam and plan: Yes Notes (Text): 01/13/18 17:37 Seen examined and discussed with resident. Agree with findings and plan as above. Patient BG controlled and K corrected. Meds for outpatient given. Pharmacy changed to [facility] as it is closer to where patient stays. Follow up closely at clinic.
[2018-01-13 11:26] LABS: ALB/GLOB RATIO 0.9 (1.0-2.1); ALBUMIN 2.9 g/dL (3.5-5.0); ALT/SGPT 22 U/L (21-72); AST/SGOT 53 U/L (17-59)
[2018-01-13] MEDS: Insulin Regular 100 units/ml SC SCH (12:14)
[2018-01-13 13:02] LABS: ALT/SGPT 21 U/L (21-72); AST/SGOT 15 U/L (17-59); BLOOD UREA NITROGEN < 2 mg/dl (9-20); CALCIUM 8.7 mg/dL (8.4-10.2); GFR NON-AFRICAN AMERICAN > 60
[2018-01-13] MEDS ORDERED: Potassium Chloride 20 mEq ER Tab PO SCH (15:00)
== END 2018-01-13 15:20 | disposition home or self-care (01) ==
LOC: H.ER 12:29 → MERGE 16:53 → H.ERHOLD 16:53 → UNMERGE 16:53 → H.MEDSURG1 23:11
PROVIDERS: ADMIT Student in an Organized Health Care Education/Training Program; ATTEND Student in an Organized Health Care Education/Training Program
DX: E11.65 Type 2 diabetes mellitus with hyperglycemia (principal); E87.6 Hypokalemia; I10 Essential (primary) hypertension; E66.9 Obesity, unspecified; Z91.14 Patient's other noncompliance with medication regimen; Z23 Encounter for immunization; Z79.4 Long term (current) use of insulin; Z88.0 Allergy status to penicillin; Z59.0 Homelessness
CPT/HCPCS: 36415; 36600; 80048; 80053; 81003; 82803; 82948; 83690; 83735; 83930; 84100; 84132; 85025; 90471; 90732; 93005; 96361; 96365; 96372; 96375; 99285; G0378; J1650; J2405; J3480; J7030; Q2035

== ENCOUNTER 2018-02-02 11:08 | Emergency (ER) | payer MEDICAID ==
[2018-02-02 11:16] VITALS: BP 110/71; PULSE 88; TEMP 98.5; O2SAT 95
[2018-02-02 11:17] VITALS: BMI 41.3
--- NOTE | 2018-02-02 12:12 | RAD ---
Date of service: 02/02/2018 HISTORY: cough COMPARISON: No prior. TECHNIQUE: Chest PA and lateral FINDINGS: LUNGS: No active pulmonary disease. PLEURA: No significant pleural effusion identified. No pneumothorax apparent. CARDIOVASCULAR: No aortic atherosclerotic calcification present. Normal cardiac size. No pulmonary vascular congestion. OSSEOUS STRUCTURES: No significant abnormalities. VISUALIZED UPPER ABDOMEN: Normal. OTHER FINDINGS: None. IMPRESSION: No active disease.
--- NOTE | 2018-02-02 12:16 | ED PDOC ---
HPI: Influenza Time Seen by Provider: 02/02/18 11:41 Chief Complaint: Cough, Cold, Congestion History Per: Patient Additional complaint(s):: Pt. states since Thursday he's had a cough productive of green sputum associated with sore throat and nasal congestion. Reports no fever. Denies chest pain, SOB, hemoptysis, N/V/D, abd pain, sick contacts, recent travel. Past Medical History Reviewed: Historical Data, Nursing Documentation, Vital Signs Vital Signs: Last Vital Signs Temp 98.5 F 02/02/18 11:15 Pulse 88 02/02/18 11:15 Resp BP 110/71 02/02/18 11:15 Pulse Ox 95 02/02/18 11:15 - Medical History PMH: Diabetes, HTN Denies: Chronic Kidney Disease - Surgical History Surgical History: Tonsillectomy - Family History Family History: States: Diabetes - Home Medications Home Medications: Ambulatory Orders Medication Instructions Recorded RX: Insulin Lispro [humALOG] 14 unit SC AC 01/11/18 RX: Metoprolol Succinate XL 50 mg PO DAILY 01/11/18 [Toprol XL] RX: Paliperidone Palmitate [Invega 234 mg IM Q28D 01/11/18 Sustenna] RX: Insulin Glargine, Recombina 34 unit SC HS 30 Days #1 unit 01/12/18 [Lantus] RX: Losartan [Cozaar] 50 mg PO DAILY 30 Days #30 tab 01/12/18 RX: MetFORMIN [glucoPHAGE] 1,000 mg PO BID 30 Days #60 tab 01/12/18 RX: Metoprolol Succinate XL 50 mg PO DAILY 30 Days #30 tab 01/12/18 [Toprol XL] RX: Rosuvastatin Calcium [Crestor] 10 mg PO HS 30 Days #30 tab 01/12/18 RX: SITagliptin [Januvia] 50 mg PO DAILY 30 Days #30 tab 01/12/18 RX: Sertraline [Zoloft] 200 mg PO DAILY 30 Days #30 tab 01/12/18 RX: amLODIPine [Norvasc] 5 mg PO DAILY 30 Days #30 tab 01/12/18 RX: buPROPion XL [Wellbutrin XL] 300 mg PO DAILY 30 Days #30 t24 01/12/18 Albuterol HFA [Ventolin HFA 90 2 puff IH [id number] PRN #120 puff 02/02/18 mcg/actuation (8 g)] Azithromycin [Zithromax] 250 mg PO DAILY #6 tab 02/02/18 RX: Promethazine DM [Phenergan DM 5 - 10 ml PO Q8 PRN #120 ml 02/02/18 Syrup] - Allergies Allergies/Adverse Reactions: Allergies Allergy/AdvReac Type Severity Reaction Status Date / Time Penicillins Allergy RASH Verified 01/11/18 12:49 Review of Systems ROS Statement: Except As Marked, All Systems Reviewed And Found Negative ENT: Positive for: Nose Congestion, Throat Pain Respiratory: Positive for: Cough Physical Exam - Physical Exam Appears: Positive for: Well, Non-toxic, No Acute Distress Skin: Positive for: Normal Color, Warm. Negative for: Rash Eye Exam: Positive for: Normal appearance ENT: Positive for: TM Is/Are (non-erythematous, non-bulging b/l), Pharyngeal Erythema. Negative for: Tonsillar Exudate, Tonsillar Swelling Neck: Positive for: Normal, Painless ROM Cardiovascular/Chest: Positive for: Regular Rate, Rhythm Respiratory: Positive for: Normal Breath Sounds. Negative for: Respiratory Distress Gastrointestinal/Abdominal: Positive for: Soft. Negative for: Tenderness Neurologic/Psych: Positive for: Alert, Oriented (x3) - ECG O2 Sat by Pulse Oximetry: 95 - Radiology X-Ray: Interpreted by Me (CXR) X-Ray Interpretation: No Acute Disease - Progress ED Course And Treament: Rapid strep, CXR ordered. Disposition - Clinical Impression Clinical Impression: Acute bronchitis - Patient ED Disposition Is Patient to be Admitted: No - Disposition Referrals: [facility] [Outside] Disposition: Routine/Home Disposition Time: 13:13 Condition: STABLE Additional Instructions: NEAL CHUA, thank you for letting us take care of you today. Your provider was Dixon Stanford MD and you were treated for COUGH. The emergency medical care you received today was directed at your acute symptoms. If you were prescri bed any medication, please fill it and take as directed. It may take several days for your symptoms to resolve. Return to the Emergency Department if your symptoms worsen, do not improve, or if you have any other problems. Please contact your doctor or call one of the physicians/clinics you have been referred to that are listed on the Patient Visit Information form that is included in your discharge packet. Bring any paperwork you were given at discharge with you along with any medications you are taking to your follow up visit. Our treatment cannot replace ongoing medical care by a primary care provider outside of the emergency department. Thank you for allowing the [employer] [facility] team to be part of your care today. If you had an X-Ray or CT scan: A Radiologist will review the ED reading if any change in treatment is needed we will contact you. If you had a blood, urine, or wound culture: It will take several days for the results, if any change in treatment is needed we will contact you. If you had an STI test: It will take 48 hours for the results. Please call after 1 week if you have not heard back. Prescriptions: Albuterol HFA [Ventolin HFA 90 mcg/actuation (8 g)] 2 puff [id number] [id number] PRN #120 puff PRN Reason: Cough or wheezing Azithromycin [Zithromax] 250 mg PO DAILY #6 tab RX: Promethazine DM [Phenergan DM Syrup] 5 - 10 ml PO Q8 PRN #120 ml PRN Reason: Cough Instructions: Acute Bronchitis, Adult (DC) Forms: [employer] ([employer])
== END 2018-02-02 13:40 | disposition home or self-care (01) ==
LOC: H.ER 11:08
DX: J20.9 Acute bronchitis, unspecified (principal)